=== PATIENT | male | born 1945 ===

== ENCOUNTER 2016-12-23 05:53 | Emergency (ER) | payer MEDICARE ==
[2016-12-23] MEDS ORDERED: Pantoprazole 80 MG in Sodium Chloride 0.9% 100 ML IV STA (06:21)
[2016-12-23] MEDS ORDERED: Sodium Chloride 0.9% 1,000 ML IV ONE (06:21)
--- NOTE | 2016-12-23 06:21 | C.PDOC ---
Time Seen by Provider: 12/23/16 06:21 Chief Complaint (Nursing): Abdominal Pain Past Medical History Vital Signs: Last Vital Signs Temp 97.6 F 12/23/16 06:10 Pulse 82 12/23/16 06:10 Resp 20 12/23/16 06:10 BP 160/83 H 12/23/16 06:10 Pulse Ox 97 12/23/16 06:10 - Social History Hx Alcohol Use: No Hx Substance Use: No ED Course And Treatment O2 Sat by Pulse Oximetry: 97 Disposition Counseled Patient/Family Regarding: Studies Performed, Diagnosis - Disposition Disposition Time: 06:21
--- NOTE | 2016-12-23 06:29 | C.PDOC ---
History Of Present Illness pt presents with 2 episodes of rectal bleeding and pain. happened around 2 am and lpta. Some burning discomfort. No f/c/n/v. Time Seen by Provider: 12/23/16 06:21 Chief Complaint (Nursing): Abdominal Pain History/Exam Limitations: no limitations Onset/Duration Of Symptoms: Hrs Current Symptoms Are (Timing): Still Present Number Of Bleeding Episodes: Multiple: (2) Amount of Blood Loss: Medium Severity: Moderate Pain Scale Rating Of: 4 Quality Of Discomfort: Dull, Burning Associated Symptoms: Rectal Bleeding. denies: Nausea, Vomiting, Diarrhea, Coffee Ground material, Lightheadedness Modifying Factors: None Recent travel outside of the [place]: No Additional History Per: Patient Past Medical History Reviewed: Historical Data, Nursing Documentation, Vital Signs Vital Signs: Last Vital Signs Temp 97.6 F 12/23/16 06:10 Pulse 82 12/23/16 06:10 Resp 20 12/23/16 06:10 BP 160/83 H 12/23/16 06:10 Pulse Ox 97 12/23/16 06:10 Family History: States: No Known Family Hx - Social History Hx Alcohol Use: No Hx Substance Use: No Review Of Systems Constitutional: Negative for: Fever, Chills Eyes: Negative for: Conjunctivae Inflammation Cardiovascular: Negative for: Chest Pain Respiratory: Negative for: Shortness of Breath Gastrointestinal: Positive for: Rectal Pain. Negative for: Nausea, Vomiting, Abdominal Pain Genitourinary: Negative for: Dysuria Musculoskeletal: Negative for: Back Pain Skin: Negative for: Rash Neurological: Negative for: Weakness Psych: Negative for: Anxiety Physical Exam - Physical Exam Appears: Non-toxic, No Acute Distress Skin: Warm, Dry Head: Normacephalic Eye(s): bilateral: Normal Inspection Oral Mucosa: Moist Neck: Trachea Midline, Supple Chest: Symmetrical Cardiovascular: Rhythm Regular Respiratory: No Rales, No Rhonchi, No Wheezing Gastrointestinal/Abdominal: Soft, No Tenderness Rectal: Hemorrhoids (bleeding), Tenderness Back: Normal Inspection Extremity: Normal ROM Extremity: Bilateral: Atraumatic, Normal Color And Temperature Neurological/Psych: Oriented x3, Normal Speech, Normal Cognition Gait: Steady ED Course And Treatment O2 Sat by Pulse Oximetry: 97 Pulse Ox Interpretation: Normal Progress Note: blood work, ivf, protonix, Disposition Counseled Patient/Family Regarding: Studies Performed, Diagnosis - Disposition Disposition Time: 06:27 Condition: FAIR - Clinical Impression Clinical Impression: Rectal bleeding, Hemorrhoid Physician Patient Turnover Patient Signed Over To: Jocelyne Jackson Handoff Comments: pending labs and dispo
[2016-12-23 06:41] LABS: BASO % 0.5 % (0.0-2.0); HEMATOCRIT 43.7 % (35.0-51.0); LYMPH # 1.6 K/uL (1.0-4.3); LYMPH % 31.6 % (20.0-40.0); MEAN CELL VOLUME 72.1 fL (80.0-94.0); MEAN CORPUSCULAR HEMOGLOBIN 22.5 pg (27.0-31.0); MEAN CORPUSCULAR HGB CONC 31.2 g/dL (33.0-37.0); MEAN PLATELET VOLUME 10.2 fL (7.2-11.7); MONO # 0.4 K/uL (0.0-0.8); MONO % 8.5 % (0.0-10.0); RED CELL DISTRIBUTION WIDTH 14.8 % (11.5-14.5); WHITE BLOOD COUNT 5.1 K/uL (4.8-10.8)
[2016-12-23 06:46] LABS: RBC URINE 16 /hpf (0-3); URINE BILIRUBIN NEGATIVE (NEGATIVE); URINE BLOOD 1+ (NEGATIVE); URINE COLOR Yellow (YELLOW); URINE GLUCOSE (UA) NORMAL (Normal); URINE KETONE NEGATIVE (NEGATIVE); URINE LEUKOCYTE ESTERASE NEG Leu/uL (Negative); URINE PROTEIN NEGATIVE (NEGATIVE); URINE UROBILINOGEN NORMAL mg/dL (0.2-1.0); WBC URINE < 1 /hpf (0-5)
[2016-12-23 06:48] LABS: CHLORIDE 106 mmol/L (98-107); SODIUM 140 mmol/L (132-148)
[2016-12-23 06:49] LABS: POTASSIUM 3.5 mmol/L (3.6-5.2)
[2016-12-23 06:51] LABS: ALB/GLOB RATIO 1.4 (1.0-2.1); ALKALINE PHOSPHATASE 86 U/L (38-126); ALT/SGPT 27 U/L (21-72); AST/SGOT 18 U/L (17-59); BILIRUBIN,TOTAL 0.6 mg/dL (0.2-1.3); BLOOD UREA NITROGEN 15 mg/dL (9-20); CARBON DIOXIDE 24 mmol/L (22-30); GFR AFRICAN-AMERICAN > 60; GLUCOSE,RANDOM 109 mg/dL (75-110); TOTAL PROTEIN 6.8 g/dL (6.3-8.3)
[2016-12-23 06:52] LABS: CALCIUM 8.1 mg/dl (8.6-10.4)
[2016-12-23 07:12] VITALS: TEMP 98.2; O2SAT 100
[2016-12-23 08:49] VITALS: BP 145/70; PULSE 62; RESP 18
--- NOTE | 2016-12-23 09:11 | RAD ---
PROCEDURE: CHEST RADIOGRAPH, 1 VIEW HISTORY: GI Bleeding COMPARISON: None available. FINDINGS: LUNGS: Clear. PLEURA: No pneumothorax or pleural fluid seen. CARDIOVASCULAR: Normal. OSSEOUS STRUCTURES: No significant abnormalities. VISUALIZED UPPER ABDOMEN: Normal. OTHER FINDINGS: None. IMPRESSION: No active disease.
--- NOTE | 2016-12-24 12:04 | CARD ---
APPROVED REPORT EKG Measurement Heart [id number] <Conclusion> Normal sinus rhythm Normal ECG
== END 2016-12-23 09:19 | disposition home or self-care (01) ==
LOC: C.ER 05:53
DX: K64.8 Other hemorrhoids (principal); K62.5 Hemorrhage of anus and rectum
CPT/HCPCS: 71010; 80053; 81001; 85025; 85610; 85730; 86850; 86900; 93005; 96360; 96361; 99285; C9113; G0328; J7040

== ENCOUNTER 2017-01-17 05:57 | Day surgery (SDC) | payer MEDICARE ==
[2017-01-17 07:23] VITALS: BMI 23.7
[2017-01-17] MEDS ORDERED: Propofol 10 mg/ml Inj (20 ML) ONE ×3 (08:17→09:26)
[2017-01-17] MEDS ORDERED: Phenylephrine 10 mg/ml Inj ONE (08:41)
[2017-01-17 10:06] VITALS: TEMP 97.2
[2017-01-17 10:33] VITALS: RESP 12; O2SAT 97
[2017-01-17 10:56] VITALS: BP 110/59; PULSE 68
== END 2017-01-17 10:50 | disposition home or self-care (01) ==
LOC: C.ENDO 05:57
PROVIDERS: ATTEND Internal Medicine
DX: K62.5 Hemorrhage of anus and rectum (principal); K59.00 Constipation, unspecified; D12.2 Benign neoplasm of ascending colon; D12.0 Benign neoplasm of cecum; D12.5 Benign neoplasm of sigmoid colon; D12.3 Benign neoplasm of transverse colon
CPT/HCPCS: 45380; 45385; 88305; J2001; J2370; J2704

== ENCOUNTER 2017-03-05 07:10 | Day surgery (SDC) | payer MEDICARE ==
[2017-02-24 07:57] VITALS: BMI 24.7
[2017-03-05] MEDS ORDERED: Propofol 10 mg/ml Inj (20 ML) ONE (08:42)
[2017-03-05] MEDS ORDERED: Midazolam 2 MG/2 ML VIAL ONE (08:42)
[2017-03-05] MEDS ORDERED: Phenylephrine 10 mg/ml Inj ONE (08:47)
[2017-03-05] MEDS ORDERED: Lidocaine 1% Inj (20ml) ONE (08:49)
[2017-03-05] MEDS ORDERED: Bupivacaine-Epi 0.25%-1:200,000 PF Inj ONE (08:49)
[2017-03-05] MEDS ORDERED: ceFAZolin IV 2 gm in Dextrose 1 GM/50 ML BAG IVPB ONE (08:49)
[2017-03-05] MEDS ORDERED: metroNIDAZOLE IV 500 mg/100 ml 500 MG/100 ML BAG ONE (09:22)
[2017-03-05] MEDS ORDERED: HYDROmorphone 0.5 mg/0.5 ml ISec IVP PRN (11:03)
--- NOTE | 2017-03-05 11:05 | PCM.SURG1 ---
Surgeon's Initial Post Op Note - Surgeon's Notes Surgeon: Vitaliy Project Management Manager: [id number] Type of Anesthesia: General LMA Pre-Operative Diagnosis: Rectal polyp Operative Findings: Rectal polyps on grade 3 L lateral internal hemorrhoid and R posterior internal hemorrhoid Post-Operative Diagnosis: 2 Rectal polyps one on grade 3 L lateral internal hemorrhoid + one on grade 3 R posterior internal hemorrhoid. Grade 3 anterior internal hemorrhoid Operation Performed: R posterior and L Lateral hemorrhoidectomy and Polypectomy (x2) Specimen/Specimens Removed: Rectal polyps on grade 3 L lateral internal hemorrhoid and R posterior internal hemorrhoid Estimated Blood Loss: EBL {In ML}: 50 Blood Products Given: N/A Drains Used: No Drains Post-Op Condition: Good Date of Surgery/Procedure: 03/05/17 Time of Surgery/Procedure: 09:15
[2017-03-05] MEDS ORDERED: Oxycodone/Acetaminophen 5/325 mg Tab PO ONE (11:08)
[2017-03-05 11:24] VITALS: O2SAT 100
[2017-03-05 12:44] VITALS: RESP 18; TEMP 97.8
[2017-03-05 13:24] VITALS: BP 109/53; PULSE 82
--- NOTE | 2017-03-09 08:48 | OP ---
PROCEDURE DATE: 03/05/2017 PREOPERATIVE DIAGNOSIS: Rectal polyp. POSTOPERATIVE DIAGNOSES: 1. Multiple rectal polyps. 2. Grade 3 multiple hemorrhoids. PROCEDURES DONE: 1. Transanal excision of the rectal polyp on left lateral position 2. Transanal excision of the rectal polyp on right anterior position. 2. Two-column hemorrhoidectomy (Left lateral and right anterior hemorrhoids) SURGEON: Zoran Burks MD QUILL CLEANER: Mega Curry, PGY-3 resident and ADAM Quesada. TYPE OF ANESTHESIA: General anesthesia with LMA. ESTIMATED BLOOD LOSS: Around 50 mL. DRAINS: None. PATHOLOGY: Hemorrhoids and polyp was sent for pathology. COMPLICATIONS: None. INTRAOPERATIVE FINDINGS: The patient had a left lateral and right anterior hyperplastic polyp with underlying grade 3 hemorrhoids of all the 3 columns. DESCRIPTION OF PROCEDURE: On intraoperative step, this is a 71-year-old male who was status post colonoscopy and the patient had a large rectal polyp and the patient was consented for transanal excision of the rectal polyp and the patient was brought to the OR, placed supine on the operating table. After induction of the anesthesia, the patient was placed in lithotomy position and perineal area was prepped and draped and Lonestar retractor was applied and sutured to the skin and anal mucosa was retracted with the hook and the rectal polyp was prolapsing with underlying grade 3 hemorrhoids and a first left lateral elliptical incision was made and left lateral hemorrhoid with overlying polyp was completely excised and pedicle was ligated with 0 Vicryl and sutured with a 2-0 Vicryl continuous suture and the similar incision was made on the right anterior side and the rectal polyp was excised with underlying hemorrhoids and the pedicle was ligated with 0 Vicryl and the mucosa was sutured with 2-0 Vicryl continuous suture and dry sterile dressing was applied. The patient tolerated the procedure well. Count of the instrument was correct. There was no apparent complication. The patient was extubated in OR, sent to the postanesthesia care unit in stable condition. Zoran Burks MD JULIA
== END 2017-03-05 14:15 | disposition home or self-care (01) ==
LOC: C.SDS 07:10
PROVIDERS: ATTEND Surgery Surgical Critical Care
DX: K62.1 Rectal polyp (principal); K64.2 Third degree hemorrhoids
CPT/HCPCS: 46922; 46946; 88304; J0690; J1100; J2250; J2370; J2405; J2704; J3010

== ENCOUNTER 2018-04-30 16:50 | Emergency (ER) | payer MEDICARE ==
[2018-04-30 16:50] VITALS: BMI 24.7
[2018-04-30 17:00] VITALS: BP 125/74; PULSE 78; RESP 20; TEMP 97.8; O2SAT 96
--- NOTE | 2018-04-30 18:20 | C.PDOC ---
History Of Present Illness 72 y/o male, w/no significant PMHx, presents to the ER complaining of bilateral eye redness which has been present for the past 1 week. Patient states that his co-workers noticed that the redness has become worse over the past 1 week. Patient states that he has mild swelling with itching and redness under his right eye starting today. He is also complaining of blurry vision which has been present for the past several months. Pt works in an [employer] daily. He wears glasses for reading. He did not take any medications for his symptoms. Denies eye pain, difficulty moving eyes, headache, ear pain, sore throat, SOB, fever,and chills. Chief Complaint (Nursing): Eye Problem History Per: Patient History/Exam Limitations: no limitations Onset/Duration Of Symptoms: Days Current Symptoms Are (Timing): Still Present Severity: Moderate Past Medical History Reviewed: Historical Data, Nursing Documentation, Vital Signs Vital Signs: Last Vital Signs Temp 97.8 F 04/30/18 16:57 Pulse 78 04/30/18 16:57 Resp 20 04/30/18 16:57 BP 125/74 04/30/18 16:57 Pulse Ox 96 04/30/18 16:57 - Medical History PMH: No Chronic Diseases Denies: Chronic Kidney Disease Surgical History: Other Surgeries: Hx of surgeries Family History: States: No Known Family Hx - Social History Hx Alcohol Use: No Hx Substance Use: No - Immunization History Hx Tetanus Toxoid Vaccination: No Hx Influenza Vaccination: No Hx Pneumococcal Vaccination: No Review Of Systems Except As Marked, All Systems Reviewed And Found Negative. Constitutional: Negative for: Fever, Chills Eyes: Positive for: Eyelid Inflammation (redness and itching to right lower lid and sking below), Redness. Negative for: Pain, Vision Change, Conjunctivae Inflammation ENT: Negative for: Ear Pain, Ear Discharge, Nose Pain, Nose Discharge, Nose Congestion, Mouth Pain, Mouth Swelling, Throat Pain, Throat Swelling Cardiovascular: Negative for: Chest Pain, Palpitations Respiratory: Negative for: Cough, Shortness of Breath Gastrointestinal: Negative for: Nausea, Vomiting, Abdominal Pain Musculoskeletal: Negative for: Neck Pain, Shoulder Pain, Arm Pain, Back Pain, Hand Pain, Leg Pain, Foot Pain Skin: Negative for: Rash Neurological: Negative for: Weakness, Numbness, Incoordination, Headache, Dizziness Physical Exam - Physical Exam Appears: Non-toxic, No Acute Distress Skin: Normal Color, Warm, Dry Head: Atraumatic, Normacephalic Eye(s): bilateral: PERRL, EOMI, Other (erythema to visible portion of sclera, pterygium on nasal aspect of sclera, no erythema below eyelids, Visual Acuity: left eye: 20/100, right eye: 20/70, mild erythema and swelling with mild warmth to skin below right eye, non-tender) Ear(s): Bilateral: Normal Nose: Normal Oral Mucosa: Moist Tongue: Normal Appearing Lips: Normal Appearing Throat: Normal Neck: Normal, Normal ROM, No Midline Cervical Tenderness, Supple Lymphatic: Normal Exam Chest: Symmetrical Cardiovascular: Rhythm Regular Neurological/Psych: Oriented x3, Normal Speech, Normal Cognition, No Cerebellar Signs, Normal Motor, Normal Sensation ED Course And Treatment O2 Sat by Pulse Oximetry: 96 (RA) Pulse Ox Interpretation: Normal Medical Decision Making Medical Decision Making: Impression: Cellulitis vs Allergic Conjunctivitis Plan: Patient has been discharged with prescription for Claritin, Hydrocortisone cream and Keflex. Patient has been instructed to follow up with child guidance counselor as soon as possible. Disposition - Disposition Referrals: Pierre Yoon [Staff Provider] - Disposition: HOME/ ROUTINE Disposition Time: 18:15 Condition: GOOD Additional Instructions: Use redness relief eye drops as needed Take Keflex 500mg every 8 hours x 1 week Take claritin daily Use cream once daily Followup with eye doctor within 2 days Followup with primary doctor within 2 days Return to ED if symptoms worsen Prescriptions: Cephalexin [Keflex] 500 mg PO TID 7 Days #28 capsule Hydrocortisone 1% Cream [Cortizone 1% Cream] 1 appl TD DAILY #1 tube Loratadine [Claritin] 10 mg PO DAILY #30 tab Instructions: Seasonal Allergies (DC) Forms: [facility] ([place]), Work Excuse - Clinical Impression Clinical Impression: Allergic conjunctivitis - PA / CHIEF INFORMATICS OFFICER / Resident Statement MD/DO has reviewed & agrees with the documentation as recorded. - Scribe Statement The provider has reviewed the documentation as recorded by the Deepaliibe Philippe Pinto Provider Attestation All medical record entries made by the Scribe were at my direction and personally dictated by me. I have reviewed the chart and agree that the record accurately reflects my personal performance of the history, physical exam, medical decision making, and the department course for this patient. I have also personally directed, reviewed, and agree with the discharge instructions and disposition.
== END 2018-04-30 18:55 | disposition home or self-care (01) ==
LOC: C.ER 16:50
DX: H10.11 Acute atopic conjunctivitis, right eye (principal)